=== PATIENT | male | born 1970 | race Caucasian/White ===

== ENCOUNTER → 2019-04-22 13:44 | Outpatient (CLI) | payer BC, SELFPAY ==
[2019-04-22 14:11] LABS: D-Dimer Quantitative (DVT/PE) 0.39 FEU/ug/m (0.27-0.49)
== END ==
PROVIDERS: Family Provider Family Medicine; PCP Family Medicine; Referring Provider Family Medicine; Visit Provider Family Medicine
DX: R07.9 Chest pain, unspecified (principal)
CPT/HCPCS: 84484; 85379

== ENCOUNTER → 2019-05-06 11:40 | Outpatient (CLI) | payer BC, SELFPAY ==
--- NOTE | 2019-05-06 12:53 | STRESSREP ---
Stress Test Report Exercise stress test. 48-year-old man with a history of chest pain. Stress protocol: Resting EKG demonstrates normal sinus rhythm with a rate of 71 bpm normal intervals are noted resting blood pressure 726/80 2 mmHg. The patient exercised according to regular [facility] protocol for a total duration of 12 minutes. The maximum heart rate attained was 171 bpm which was 98% of maximum predicted heart rate the maximum workload was 13.4 metabolic equivalents. At rest there were no ST or T wave changes noted suggest ischemia peak exercise nonspecific ST-T wave changes were noted. The resting blood pressure was 126/82 with a final blood pressure 166/58 mmHg as the peak the rate pressure product was 28,300. No clinical angina was noted the test was terminated due to dyspnea. Conclusion: Exercise stress test with no EKG criteria for ischemia at a high workload. No arrhythmias noted. Good functional capacity.
== END ==
PROVIDERS: Family Provider Physician Assistant; PCP Physician Assistant; Referring Provider Family Medicine; Visit Provider Family Medicine
DX: R07.9 Chest pain, unspecified (principal)
CPT/HCPCS: 93017

== ENCOUNTER → 2024-07-26 | Outpatient (CLI) | payer BC, SELFPAY ==
--- NOTE | 2024-07-26 07:51 | EKG12_ITS ---
Test Reason : PREOP Blood Pressure : */* mmHG Vent. Rate : 71 BPM Atrial Rate : 71 BPM P-R Int : 172 ms QRS Dur : 98 ms QT Int : 394 ms P-R-T Axes : 47 38 45 degrees QTcB Int : 428 ms Normal sinus rhythm Normal ECG Confirmed by JOY BAILEY ([id number]), editor farm journal KENJI ALEJANDRA ([id number]) on 07/29/2024 7:15:34 AM Referred By: Danielle Pierre Confirmed By: JOY BAILEY
[2024-07-26 08:27] LABS: Hematocrit 44.1 % (40-54); Mean Corpuscular Hgb 30.2 pg (27.0-32.0); Mean Corpuscular Volume 88.7 fL (80-94); Mean Platelet Vol. 9.8 fl (6.2-12.0); Platelet Count 189 K/mm3 (150-450); RBC Distribution Width CV 12.2 % (11.6-14.6); RBC Distribution Width SD 39.4 fl (35.1-43.9); Red Blood Count 4.97 M/mm3 (4.6-6.2); White Blood Count 3.8 K/mm3 (4.4-11.0)
[2024-07-26 09:11] LABS: Anion Gap 4 (5-15); BUN 15 mg/dL (7-18); BUN/Creat Ratio 15.9 RATIO (10-20); Calcium,Total 9.1 mg/dL (8.5-10.1); Chloride 109 mmol/L (98-107); Creatinine, Serum 0.95 mg/dL (0.70-1.30); EST Glomerular Filtration Rate 89 mL/min (>60); Est Glom Filt Rate - Afr Amer 107 mL/min (>60); Glucose 88 mg/dL (74-106); Potassium 4.9 mmol/L (3.5-5.1); Sodium Level 138 mmol/L (136-145)
== END | disposition home or self-care (01) ==
LOC: PSN 07:51
PROVIDERS: PCP Clinical Nurse Specialist Adult Health; Referring Provider Physician Assistant; Visit Provider Physician Assistant
DX: Z01.810 Encounter for preprocedural cardiovascular examination (principal)
CPT/HCPCS: 36415; 80048; 85027; 93005